=== PATIENT | female | born 1990 | race African-American/Black ===

== ENCOUNTER 2017-02-20 22:17 | Outpatient (CLI) | payer SELFPAY | END 2017-02-20 23:06 | disposition home or self-care (01) | LOC: M LDO 22:17 | DX: O47.03 False labor before 37 completed weeks of gestation, third trimester (principal); Z3A.37 37 weeks gestation of pregnancy | CPT/HCPCS: 59025 ==

== ENCOUNTER 2017-02-23 16:25 | Outpatient (CLI) | payer OTHER | END 2017-02-23 20:37 | disposition home or self-care (01) | LOC: M LDO 16:25 | DX: O26.893 Other specified pregnancy related conditions, third trimester (principal); N89.8 Other specified noninflammatory disorders of vagina; Z3A.37 37 weeks gestation of pregnancy | CPT/HCPCS: 59025 ==

== ENCOUNTER 2017-03-14 05:55 | Inpatient (IN) | payer OTHER ==
[2017-03-14 06:45] LABS: HEMATOCRIT 32.2 % (36.0-47.0); HEMOGLOBIN 9.9 g/dl (12.0-16.0); MEAN CORPUSCULAR HEMOGLOBIN 22.4 pg (27.0-33.0); MEAN CORPUSCULAR HGB CONC 30.7 g/dl (32.0-36.5); MEAN CORPUSCULAR VOLUME 72.9 fl (80.0-96.0); PLATELET COUNT, AUTOMATED 174 10^3/uL (150-450); RED BLOOD COUNT 4.42 10^6/uL (4.00-5.40); RED CELL DISTRIBUTION WIDTH 16.5 % (11.5-14.5); WHITE BLOOD COUNT 8.3 10^3/uL (4.0-10.0)
[2017-03-14] MEDS: LACTATED RINGER'S 1000 ML IV (07:02)
[2017-03-14] MEDS ORDERED: LR 1,000 ML IV (08:43)
[2017-03-14] MEDS: LR 1,000 ML IV ×3 (08:49→21:00)
[2017-03-14 09:36] LABS: AMPHETAMINES URINE REFLEX NEGATIVE (NEGATIVE); BARBITURATES URINE REFLEX NEGATIVE (NEGATIVE); BENZODIAZEPINES URINE REFLEX NEGATIVE (NEGATIVE); CANNABINOIDS URINE REFLEX NEGATIVE (NEGATIVE); COCAINE METABOLITE URINE REFLE NEGATIVE (NEGATIVE); METHADONE URINE REFLEX NEGATIVE (NEGATIVE); OPIATES URINE REFLEX NEGATIVE (NEGATIVE); PHENCYCLIDINE URINE REFLEX NEGATIVE (NEGATIVE)
[2017-03-14] MEDS: OXYTOCIN DRIP 30 UNITS in APPROPRIATE DILUENT 1 EA IV (09:40)
[2017-03-14] MEDS ORDERED: FENTANYL 2MCG/ML ROPIVACAINE 0.2% IN 0.9% NACL 200ML IVBAG As Ordered (14:30)
[2017-03-14] MEDS ORDERED: LACTATED RINGER'S 1000 ML IV (16:15)
[2017-03-14] MEDS ORDERED: diphenhydrAMINE INJ 50MG/ML VIAL (J1200) IV (16:15)
[2017-03-14] MEDS ORDERED: EPIDURAL/PCA KEYS XX (16:15)
[2017-03-14] MEDS ORDERED: ePHEDrine INJ 50 MG/ML VIAL IV (16:15)
[2017-03-14] MEDS ORDERED: REFRIGERATOR IV KEYS XX (16:15)
[2017-03-14] MEDS ORDERED: NALOXONE INJ 0.4 MG/1 ML VIAL (J2310) IV ×3 (16:15→20:05)
[2017-03-14] MEDS ORDERED: ONDANSETRON 4MG/2ML VIAL (J2405) IV ×3 (16:15→21:00)
[2017-03-14] MEDS ORDERED: EPIDURAL COMMENT XX (16:15)
[2017-03-14] MEDS ORDERED: FENTANYL/ROPIVACAINE/NACL BAG 200 ML EPIDURAL (16:15)
[2017-03-14] MEDS ORDERED: TERBUTALINE SULFATE 1 MG/ML VIAL (J3105) As Ordered (19:24)
[2017-03-14] MEDS ORDERED: BICITRA 30ML SOLN UDC As Ordered (19:29)
[2017-03-14] MEDS: TERBUTALINE SULFATE 1 MG/ML VIAL (J3105) SC (19:29)
[2017-03-14] MEDS ORDERED: ceFAZolin 2 GM/D5W 50 ML IV BAG (J0690 PER 500MG) As Ordered (19:29)
[2017-03-14] MEDS: KETOROLAC 30 MG/ML VIAL (J1885) IV (20:00)
[2017-03-14] MEDS ORDERED: METOCLOPRAMIDE INJ 10MG/2ML VIAL (J2765) IV ×2 (20:05→21:00)
[2017-03-14 20:07] LABS: CORD GAS HCO3 V 21.4 MEQ/L; CORD GAS O2 SAT V 64.1 %; CORD GAS PCO2 V 40.2 mmHg; CORD GAS PH V 7.344 UNITS; CORD GAS SBC V 20.5 MEQ/L; CORD GAS TCO2 V 22.6 MEQ/L
[2017-03-14 20:18] LABS: CORD GAS ABE A -3.6; CORD GAS HCO3 A 23.1 MEQ/L; CORD GAS O2 SAT A 26.7 %; CORD GAS PCO2 A 48.3 mmHg; CORD GAS PH A 7.297 UNITS; CORD GAS PO2 A 15.3 mmHg; CORD GAS TCO2 A 24.6 MEQ/L
[2017-03-14] MEDS ORDERED: MEASLES,MUMPS,RUBELLA VACCINE INJ (MMR-II) (90707) SC (20:30)
[2017-03-14] MEDS ORDERED: PROMETHAZINE 25 MG TAB PO (20:30)
[2017-03-14] MEDS ORDERED: PERCOCET 5MG/325MG TAB PO ×2 (20:30→21:00)
[2017-03-14] MEDS ORDERED: RHOGAM 300 MCG (1500 IU) INJ (J2790) IM (20:30)
[2017-03-14] MEDS ORDERED: DOCUSATE SODIUM 100 MG CAP PO (20:30)
[2017-03-14] MEDS ORDERED: fentaNYL 100 MCG/2 ML INJECTION (J3010) IV (21:00)
[2017-03-14] MEDS ORDERED: MEPERIDINE INJ 25 MG/ML VIAL (J2175) IV (21:00)
[2017-03-15] MEDS: NALBUPHINE HCL 10 MG/ML AMP (J2300) IV (00:42)
[2017-03-15] MEDS: KETOROLAC 30 MG/ML VIAL (J1885) IV ×3 (02:11→14:02)
[2017-03-15] MEDS: PERCOCET 5MG/325MG TAB PO (02:12)
[2017-03-15] MEDS: ONDANSETRON 4MG/2ML VIAL (J2405) IV (03:44)
[2017-03-15 07:38] LABS: HEMATOCRIT 24.7 % (36.0-47.0); MEAN CORPUSCULAR HEMOGLOBIN 22.5 pg (27.0-33.0); MEAN CORPUSCULAR HGB CONC 31.2 g/dl (32.0-36.5); MEAN CORPUSCULAR VOLUME 72.2 fl (80.0-96.0); PLATELET COUNT, AUTOMATED 149 10^3/uL (150-450); RED BLOOD COUNT 3.42 10^6/uL (4.00-5.40); RED CELL DISTRIBUTION WIDTH 16.5 % (11.5-14.5); WHITE BLOOD COUNT 10.5 10^3/uL (4.0-10.0)
[2017-03-15 07:55] LABS: HEMOGLOBIN 7.7 g/dl (12.0-16.0)
[2017-03-15] MEDS: PRENATAL VITAMINS CHEWABLE TABLET PO (08:48)
[2017-03-15] MEDS: IBUPROFEN 800 MG TAB PO (22:24)
[2017-03-16] MEDS: IBUPROFEN 800 MG TAB PO (06:04)
[2017-03-16] MEDS: PRENATAL VITAMINS CHEWABLE TABLET PO (08:14)
== END 2017-03-16 12:10 | disposition home or self-care (01) | DRG 766 ==
LOC: M LDI 05:55 → M OBS 22:02
PROVIDERS: Student in an Organized Health Care Education/Training Program
PROC: 10D00Z1 Extraction of Products of Conception, Low, Open Approach (ICD-10-PCS; principal; 2017-03-14 19:33)
PROC: 3E033VJ Introduction of Other Hormone into Peripheral Vein, Percutaneous Approach (ICD-10-PCS; 2017-03-14 19:33)
DX: O48.0 Post-term pregnancy (principal); Z37.0 Single live birth; Z3A.41 41 weeks gestation of pregnancy; O76 Abnormality in fetal heart rate and rhythm complicating labor and delivery; O34.211 Maternal care for low transverse scar from previous cesarean delivery; O66.41 Failed attempted vaginal birth after previous cesarean delivery; D64.9 Anemia, unspecified; O99.03 Anemia complicating the puerperium